=== PATIENT | male | born 1970 | race Caucasian/White ===

== ENCOUNTER → 2020-09-24 18:37 | Outpatient (ROUT) | payer OTHER, SELFPAY ==
[2020-09-24 18:58] LABS: Add Manual Diff / Slide Review NO; Basophils Absolute Auto 0 /uL (0-100); Basophils Percent Auto 0.5 % (0-2); Eosinophils Absolute Auto 0 /uL (0-450); Eosinophils Percent Auto 0.7 % (2-4); Hematocrit 45.6 % (41-53); Hemoglobin 15.1 g/dL (13.5-17.5); Lymphocytes Absolute Auto 1700 /uL (1100-4500); Lymphocytes Percent Auto 26.5 % (25-40); Mean Corpuscular HGB Conc 33.1 % (30-36); Mean Corpuscular Hemoglobin 31.5 PG (26-34); Mean Corpuscular Volume 95.1 fL (80-100); Monocytes Absolute Auto 400 /uL (0-900); Monocytes Percent Auto 6.4 % (3-14); Neutrophils Absolute Auto 4200 /uL (1500-7000); Neutrophils Percent Auto 65.9 % (50-75); Platelet Count 217 X10^3/uL (150-400); Red Cell Distribution Width 12.8 % (11.6-14.8); White Blood Cell Count 6.4 X10^3/uL (4.5-11.0)
[2020-09-24 19:15] LABS: Erythrocyte Sedimentation Rate 4 MM/HR (0-15)
[2020-09-24 19:21] LABS: Alanine Aminotransferase 30 IU/L (<50); Albumin 4.6 g/dL (3.5-5.0); Albumin Globulin Ratio 1.5 (1.0-2.8); Alkaline Phosphatase 56 U/L (38-126); Aspartate Aminotransferase 37 IU/L (17-59); BUN Creatinine Ratio 24.4 (6-22); Bilirubin Total 0.6 mg/dL (0.2-1.3); Blood Urea Nitrogen 21 mg/dL (9-20); Calcium 9.8 mg/dL (8.4-10.2); Carbon Dioxide 35 mmol/L (22-32); Chloride 101 mmol/L (98-107); Cholesterol 131 mg/dL (140-199); Creatine Kinase 174 U/L (55-170); Estimated Glomerular Filt Rate > 60.0 mL/min (>60); Glucose 103 mg/dL (70-100); HDL Cholesterol 47 mg/dL (40-60); HEMOLYSIS < 15 (0-50); LDL Cholesterol Calculated 72 mg/dL (<100); Potassium 4.8 mmol/L (3.4-5.1); Sodium 139 mmol/L (137-145); Total Protein 7.6 g/dL (6.3-8.2); Triglycerides 62 mg/dL (35-150)
[2020-09-24 19:23] LABS: C-Reactive Protein Quant < 0.5 mg/dL (<1.0); Rheumatoid Factor < 8.6 IU/mL (<12.0)
[2020-09-24 19:48] LABS: Prostate Specific Antigen 0.872 ng/mL (0.10-4.00); TSH w/ Reflex to FT4 1.38 uIU/mL (0.47-4.68)
[2020-09-27 13:09] LABS: ANA Screen, IFA Negative (.)
== END ==
PROVIDERS: Visit Provider Internal Medicine
DX: Z00.00 Encounter for general adult medical examination without abnormal findings (principal); R53.1 Weakness; M25.50 Pain in unspecified joint
CPT/HCPCS: 80053; 80061; 82550; 84153; 84443; 85025; 85651; 86038; 86140; 86430

== ENCOUNTER → 2021-08-18 13:02 | Outpatient (CLI) | payer OTHER, SELFPAY ==
[2021-08-18 13:33] LABS: Add Manual Diff / Slide Review NO; Basophils Absolute Auto 0 /uL (0-100); Basophils Percent Auto 0.4 % (0-2); Eosinophils Absolute Auto 100 /uL (0-450); Hematocrit 44.7 % (41-53); Hemoglobin 14.9 g/dL (13.5-17.5); Lymphocytes Absolute Auto 1900 /uL (1100-4500); Lymphocytes Percent Auto 30.1 % (25-40); Mean Corpuscular HGB Conc 33.3 % (30-36); Mean Corpuscular Hemoglobin 31.1 PG (26-34); Mean Corpuscular Volume 93.3 fL (80-100); Monocytes Absolute Auto 500 /uL (0-900); Monocytes Percent Auto 7.9 % (3-14); Neutrophils Absolute Auto 3900 /uL (1500-7000); Neutrophils Percent Auto 60.6 % (50-75); Platelet Count 234 X10^3/uL (150-400); Red Cell Distribution Width 12.9 % (11.6-14.8); White Blood Cell Count 6.4 X10^3/uL (4.5-11.0)
[2021-08-18 14:11] LABS: Erythrocyte Sedimentation Rate 6 MM/HR (0-15)
[2021-08-18 14:17] LABS: Alanine Aminotransferase 24 IU/L (<50); Albumin 4.6 g/dL (3.5-5.0); Albumin Globulin Ratio 1.5 (1.0-2.8); Alkaline Phosphatase 61 U/L (38-126); Aspartate Aminotransferase 33 IU/L (17-59); BUN Creatinine Ratio 16.5 (6-22); Bilirubin Total 0.6 mg/dL (0.2-1.3); Blood Urea Nitrogen 16 mg/dL (9-20); C-Reactive Protein Quant < 0.5 mg/dL (<1.0); Calcium 9.7 mg/dL (8.4-10.2); Carbon Dioxide 33 mmol/L (22-32); Chloride 100 mmol/L (98-107); Cholesterol 257 mg/dL (140-199); Estimated Glomerular Filt Rate > 60.0 mL/min (>60); Glucose 95 mg/dL (70-100); HDL Cholesterol 35 mg/dL (40-60); HEMOLYSIS < 15 (0-50); LDL Cholesterol Calculated 184 mg/dL (<100); Potassium 4.3 mmol/L (3.4-5.1); Sodium 139 mmol/L (137-145); Total Protein 7.6 g/dL (6.3-8.2); Triglycerides 189 mg/dL (35-150)
[2021-08-18 14:19] LABS: Rheumatoid Factor < 8.6 IU/mL (<12.0)
[2021-08-18 14:48] LABS: TSH w/ Reflex to FT4 1.84 uIU/mL (0.47-4.68)
[2021-08-18 14:50] LABS: Testosterone 258 ng/dL (71.8-623)
[2021-08-21 17:49] LABS: CCP Antibodies IgG/IgA 7 units (0-19)
[2021-08-22 12:49] LABS: ANA Screen, IFA Negative (.)
[2021-08-22 21:30] LABS: Lead, Blood < 1 ug/dL (0-4)
[2021-08-25 14:41] LABS: Arsenic 0
[2021-08-25 14:42] LABS: Mercury, Blood 0
== END ==
PROVIDERS: PCP Family Medicine; Referring Provider Family Medicine; Visit Provider Family Medicine
DX: M79.10 Myalgia, unspecified site (principal); M25.50 Pain in unspecified joint; R53.83 Other fatigue
CPT/HCPCS: 36415; 80053; 80061; 82175; 83655; 83825; 84403; 84443; 85025; 85651; 86038; 86140; 86200; 86430

== ENCOUNTER → 2021-09-07 07:12 | Outpatient (CLI) | payer OTHER, SELFPAY ==
[2021-09-07 09:36] LABS: Cortisol Random 14.9 ug/dL
== END ==
PROVIDERS: PCP Family Medicine; Referring Provider Family Medicine; Visit Provider Family Medicine
DX: R53.82 Chronic fatigue, unspecified (principal); M79.10 Myalgia, unspecified site
CPT/HCPCS: 36415; 82306; 82533; 86617

== ENCOUNTER → 2022-01-26 14:28 | Outpatient (CLI) | payer OTHER, SELFPAY ==
--- NOTE | 2022-01-26 14:30 | DI.RAD.S_ITS ---
PROCEDURE: XR HIP W PEL IF DONE [place] MIN 4V INDICATIONS: back pain with sciatica TECHNIQUE: AP pelvis with lateral view(s) of the bilateral hip(s). COMPARISON: None. FINDINGS: Bones: No fractures or dislocations. There is mild right hip joint space narrowing. Pelvic ring appears intact. No suspicious bony lesions. No spondylosis of the sacroiliac joints. Soft tissues: The visualized bowel gas pattern is normal. No suspicious soft tissue calcifications. IMPRESSION: Mild right hip osteoarthritis. Dictated by: Arlene Batres M.D. on 01/26/2022 at 17:44 Approved by: Arlene Batres M.D. on 01/26/2022 at 17:44
--- NOTE | 2022-01-26 14:30 | DI.RAD.S_ITS ---
PROCEDURE: XR LUMBAR SPINE 2-3V INDICATIONS: back pain with sciatica TECHNIQUE: 3 views of the lumbar spine were acquired. COMPARISON: None. FINDINGS: Bones: 5 [id number] vertebrae are present. There is a mild rightward curvature of the lumbar spine. There is mild multilevel retrolisthesis throughout the lumbar spine measuring up to approximately 0.6 cm at L2-L3. There is multilevel degenerative disc disease throughout the lumbar spine including mild to moderate degeneration at L5-S1. Mild facet arthropathy also demonstrated at L5-S1. No vertebral body compression fractures. No suspicious bony lesions. Soft tissues: Overlying bowel gas pattern is normal. No suspicious soft tissue calcifications. IMPRESSION: 1. Mild rightward curvature of the lumbar spine and mild multilevel retrolisthesis. 2. Multilevel degenerative disc disease most prominent at L5-S1 where there is mild to moderate degeneration as well as moderate facet arthropathy. Dictated by: Alan Chinchilla M.D. on 01/26/2022 at 17:23 Approved by: Alan Chinchilla M.D. on 01/26/2022 at 17:25
== END ==
PROVIDERS: PCP Family Medicine; Referring Provider Family Medicine; Visit Provider Family Medicine
DX: S74.00XA Injury of sciatic nerve at hip and thigh level, unspecified leg, initial encounter (principal); M51.37 Other intervertebral disc degeneration, lumbosacral region; M47.817 Spondylosis without myelopathy or radiculopathy, lumbosacral region; M43.16 Spondylolisthesis, lumbar region; M16.11 Unilateral primary osteoarthritis, right hip; M54.50 Low back pain, unspecified
CPT/HCPCS: 72100; 73522

== ENCOUNTER → 2023-01-18 09:29 | Outpatient (CLI) | payer OTHER, SELFPAY ==
[2023-01-18 10:40] LABS: Add Manual Diff / Slide Review NO; Basophils Absolute Auto 100 /uL (0-100); Basophils Percent Auto 0.8 % (0-2); Eosinophils Absolute Auto 100 /uL (0-450); Eosinophils Percent Auto 1.1 % (2-4); Hematocrit 43.8 % (41-53); Lymphocytes Absolute Auto 1900 /uL (1100-4500); Lymphocytes Percent Auto 24.9 % (25-40); Mean Corpuscular HGB Conc 34.2 % (30-36); Mean Corpuscular Hemoglobin 31.1 PG (26-34); Mean Corpuscular Volume 90.9 fL (80-100); Monocytes Absolute Auto 500 /uL (0-900); Monocytes Percent Auto 6.6 % (3-14); Neutrophils Absolute Auto 5200 /uL (1500-7000); Neutrophils Percent Auto 66.6 % (50-75); Platelet Count 244 X10^3/uL (150-400); Red Blood Cell Count 4.82 X10^6/uL (4.5-5.9); Red Cell Distribution Width 13.3 % (11.6-14.8); White Blood Cell Count 7.8 X10^3/uL (4.5-11.0)
[2023-01-18 11:08] LABS: Alanine Aminotransferase 27 IU/L (<50); Albumin 4.5 g/dL (3.5-5.0); Albumin Globulin Ratio 1.2 (1.0-2.8); Alkaline Phosphatase 72 U/L (38-126); Aspartate Aminotransferase 33 IU/L (17-59); BUN Creatinine Ratio 28.4 (6-22); Bilirubin Total 0.4 mg/dL (0.2-1.3); Blood Urea Nitrogen 23 mg/dL (9-20); Calcium 9.2 mg/dL (8.4-10.2); Carbon Dioxide 30 mmol/L (22-32); Chloride 101 mmol/L (98-107); Cholesterol 189 mg/dL (140-199); Estimated Glomerular Filt Rate > 60 mL/min (>60); Globulin 3.7 g/dL (1.7-4.1); Glucose 120 mg/dL (70-100); HDL Cholesterol 50 mg/dL (40-60); HEMOLYSIS < 15 (0-50); LDL Cholesterol Calculated 126 mg/dL (<100); Potassium 4.4 mmol/L (3.4-5.1); Sodium 139 mmol/L (137-145); Total Protein 8.2 g/dL (6.3-8.2); Triglycerides 65 mg/dL (35-150)
[2023-01-18 12:08] LABS: TSH w/ Reflex to FT4 1.57 uIU/mL (0.47-4.68)
== END ==
PROVIDERS: PCP Family Medicine; Referring Provider Family Medicine; Visit Provider Family Medicine
DX: E78.5 Hyperlipidemia, unspecified (principal)
CPT/HCPCS: 36415; 80053; 80061; 84443; 85025

== ENCOUNTER → 2023-02-01 06:55 | Outpatient (CLI) | payer OTHER, SELFPAY ==
--- NOTE | 2023-02-13 08:07 | PM.PFT.1 ---
Pulmonary Function Test Referral & Results Date Patient Seen: 02/01/23 Results: The spirometry demonstrates an FVC of 4.26 L which is 91% of predicted. The FEV1 was measured at 3.54 L which is 98% of predicted. The FEV1/FVC ratio was 83 which is 107% of predicted. Following the administration of bronchodilator there was a 33% improvement in FEF 25-75%. Lung volumes show an SVC of 5.97 L which is 130% of predicted. The diffusing capacity was measured at 34.47 which is 116% of predicted. The maximum voluntary ventilation was normal Interpretation: This study demonstrates normal pulmonary function
== END ==
PROVIDERS: PCP Family Medicine; Referring Provider Family Medicine; Visit Provider Family Medicine
DX: J21.9 Acute bronchiolitis, unspecified (principal); R93.89 Abnormal findings on diagnostic imaging of other specified body structures
CPT/HCPCS: 94060; 94726; 94729

== ENCOUNTER → 2023-02-27 14:07 | Outpatient (CLI) | payer OTHER, SELFPAY ==
--- NOTE | 2023-02-27 14:08 | DI.RAD.S_ITS ---
PROCEDURE: XR FINGER LT MIN 2V INDICATIONS: pain after injury TECHNIQUE: AP hand, 2 views of the 1st digit acquired. COMPARISON: None. FINDINGS: Bones: No fractures or dislocations. No suspicious bony lesions. Soft tissues: No suspicious soft tissue calcifications. IMPRESSION: No acute osseous abnormality. If symptoms persist, follow-up radiographs and/or CT or MRI may be helpful for further evaluation. Dictated by: Neptali Johnson M.D. on 02/27/2023 at 17:11 Approved by: Neptali Johnson M.D. on 02/27/2023 at 17:20
== END ==
PROVIDERS: PCP Family Medicine; Referring Provider Family Medicine; Visit Provider Family Medicine
DX: M79.645 Pain in left finger(s) (principal)
CPT/HCPCS: 73140

== ENCOUNTER → 2024-06-05 09:32 | Outpatient (CLI) | payer OTHER, SELFPAY ==
[2024-06-05 11:06] LABS: Add Manual Diff / Slide Review NO; Basophils Absolute Auto 0 /uL (0-100); Basophils Percent Auto 0.6 % (0-2); Eosinophils Absolute Auto 0 /uL (0-450); Eosinophils Percent Auto 0.6 % (2-4); Hematocrit 43.9 % (41-53); Lymphocytes Absolute Auto 1700 /uL (1100-4500); Lymphocytes Percent Auto 27.2 % (25-40); Mean Corpuscular HGB Conc 34.1 % (30-36); Mean Corpuscular Hemoglobin 32.1 PG (26-34); Monocytes Absolute Auto 400 /uL (0-900); Neutrophils Absolute Auto 4100 /uL (1500-7000); Neutrophils Percent Auto 64.6 % (50-75); Platelet Count 215 X10^3/uL (150-400); Red Blood Cell Count 4.67 X10^6/uL (4.5-5.9); Red Cell Distribution Width 12.9 % (11.6-14.8); White Blood Cell Count 6.4 X10^3/uL (4.5-11.0)
[2024-06-05 11:24] LABS: Alanine Aminotransferase 27 IU/L (<50); Albumin 4.6 g/dL (3.5-5.0); Albumin Globulin Ratio 1.6 (1.0-2.8); Alkaline Phosphatase 67 U/L (38-126); Aspartate Aminotransferase 42 IU/L (17-59); BUN Creatinine Ratio 20.4 (6-22); Bilirubin Total 0.8 mg/dL (0.2-1.3); Blood Urea Nitrogen 21 mg/dL (9-20); Calcium 9.4 mg/dL (8.4-10.2); Carbon Dioxide 27 mmol/L (22-32); Chloride 103 mmol/L (98-107); Cholesterol 150 mg/dL (140-199); Estimated Glomerular Filt Rate > 60 mL/min (>60); Globulin 2.9 g/dL (1.7-4.1); Glucose 94 mg/dL (70-100); HDL Cholesterol 38 mg/dL (40-60); HEMOLYSIS < 15 (0-50); LDL Cholesterol Calculated 95 mg/dL (<100); Potassium 4.5 mmol/L (3.4-5.1); Sodium 138 mmol/L (137-145); Total Protein 7.5 g/dL (6.3-8.2); Triglycerides 83 mg/dL (35-150)
[2024-06-05 11:51] LABS: Prostate Specific Antigen Scrn 1.79 ng/mL (0.1-4.0)
[2024-06-05 11:54] LABS: TSH w/ Reflex to FT4 1.33 uIU/mL (0.47-4.68)
== END ==
PROVIDERS: PCP Family Medicine; Referring Provider Family Medicine; Visit Provider Family Medicine
DX: Z12.5 Encounter for screening for malignant neoplasm of prostate (principal); E78.5 Hyperlipidemia, unspecified
CPT/HCPCS: 36415; 80053; 80061; 84443; 85025; G0103

== ENCOUNTER → 2024-08-08 14:06 | Outpatient (CLI) | payer OTHER, SELFPAY ==
--- NOTE | 2024-08-08 14:07 | DI.CT.S_ITS ---
PROCEDURE: CT CHEST HIGH RESOLUTION INDICATIONS: short of breath ct showing constrctive broncholitis TECHNIQUE: Noncontrast 1.0 and 5.0 mm thick contiguous axial sections from the pulmonary apex to the posterior costophrenic angles, with 7 mm thick coronal and sagittal MIP reformats. 1 mm thick dynamic expiratory images acquired through the upper, mid, and lower lungs. 1.0 mm thick axial sections acquired from the lily to the posterior costophrenic angles in the prone end-inspiration position. For radiation dose reduction, the following was used: automated exposure control, adjustment of mA and/or kV according to patient size. COMPARISON: Outside Facility, RG, CT ANGIO CORONARY ARTERIES W/CONTRAST, 03/16/2022, 16:25. FINDINGS: Image quality: Diagnostic Lungs and pleura: There is a moderately sized area of focal air trapping in a left lower lobe. There are dilated bronchioles and a 7 mm nodule seen within the airway in this region. The nodule appears slightly larger than 2021. No other evidence of interstitial lung disease, dense airspace disease, or pleural effusions Micro nodules are present in other parts of the lung, attention on follow-up, none measuring over 5 mm. Calcified granulomas also seen. Mediastinum, heart, and esophagus: Coronary calcifications. Normal heart size. No pathologic lymph nodes by size criteria. Chest wall and thyroid: Unremarkable Upper abdomen: No gross abnormality on these limited non-contrast images Bones: There are degenerative changes. IMPRESSION: Moderate area of focal air trapping a left lower lobe, with associated dilated small airways and a possible endobronchial nodule measuring 7 mm, which appears larger than outside imaging from 2021. Differential includes longstanding bronchial atresia with mucous plug versus and endobronchial neoplasm. Consider pulmonology follow-up. No dense airspace disease or other evidence of interstitial lung disease. Dictated by: Rafael Medrano M.D. on 08/08/2024 at 16:47 Approved by: Rafael Medrano M.D. on 08/08/2024 at 16:53
== END ==
PROVIDERS: PCP Family Medicine; Referring Provider Family Medicine; Visit Provider Family Medicine
DX: J44.81 Bronchiolitis obliterans and bronchiolitis obliterans syndrome (principal); N52.9 Male erectile dysfunction, unspecified
CPT/HCPCS: 36415; 71250; 84403

== ENCOUNTER → 2024-08-08 14:43 | Outpatient (CLI) | payer OTHER, SELFPAY ==
[2024-08-08 17:47] LABS: Testosterone 259 ng/dL (71.8-623)
== END ==
PROVIDERS: PCP Family Medicine; Referring Provider Family Medicine; Visit Provider Family Medicine
DX: N52.9 Male erectile dysfunction, unspecified (principal)
CPT/HCPCS: 36415; 84403